=== PATIENT | male | born 1950 | race Caucasian/White ===

== ENCOUNTER 2022-07-13 11:05 | Emergency (ER) | payer MEDICARE, OTHER, SELFPAY ==
[2022-07-13] VITALS (13 sets, daily range): BP systolic 139–172; BP diastolic 80–101; PULSE 74–95; RESP 16–20; TEMP 36; O2SAT 85–96
--- NOTE | 2022-07-13 11:22 | ECG_ITS ---
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 Measurements Intervals [place] Rate: 86 P: 69 TN: 158 QRS: 9 QRSD: 97 T: 64 QT: 352 QTc: 421 Interpretive Statements SINUS RHYTHM Compared to ECG 06/27/2019 17:48:38 Sinus tachycardia no longer present Short TN interval no longer present Electronically Signed On 07-13-2022 19:01:17 SCRAPPER by Wally Vega M.D. [id number] f
--- NOTE | 2022-07-13 11:22 | XR_ITS ---
WS: [id number] Portable AP upright chest, 07/13/2022 Clinical Data: dyspnea/cough Comparison: Portable chest, 06/27/2019 Findings: There is a patchy peripheral opacity involving the left upper lobe and left lower lobe. Thi s opacity is most consistent with pneumonia but has actually changed little from 06/27/2019. No nodul es, masses or effusions are seen. The heart is normal. The pulmonary vascularity is not increased. No pneumothorax is seen. XR/XR chest 1V portable [id number] Impression: 1. Patchy peripheral opacity involving the left upper lobe and left lower lobe which may be chronic. 2. Right lung clear.
[2022-07-13 11:50] LABS: Basophils % 0.1 %; Eosinophils % 0.2 %; Hematocrit 39.1 % (42.0-52.0); Hemoglobin 13.1 g/dL (11.7-16.6); Lymphocytes # 1.1 10^3/uL (0.8-4.8); Lymphocytes % 7.6 %; Mean Corpuscular HGB Conc 33.5 g/dL (30.0-36.0); Mean Corpuscular Hemoglobin 30.4 pg (28.0-34.0); Mean Corpuscular Volume 90.7 fl (80-94); Monocytes # 0.7 10^3/uL (0.2-0.9); Monocytes % 5.1 %; Neutrophils # 11.59 10^3/uL (1.8-7.7); Neutrophils % 83.9 %; Nucleated Red Blood Cells % 0 %; Platelet Count 282 10^3/cmm (130-400); Red Blood Count 4.31 10^6/uL (4.1-5.3); Red Cell Distribution Width 12.2 % (12.1-15.1); White Blood Count 13.8 10^3/uL (4.0-10.0)
--- NOTE | 2022-07-13 11:55 | ED_ITS ---
HPI - SOB/Dyspnea General: Chief Complaint: Shortness of Breath/Dyspnea Stated Complaint: SOB, congestion Time Seen by Provider: 07/13/22 11:21 Source: patient Mode of arrival: ambulatory History of Present Illness: HPI Narrative: 72-year-old male presents emergency room with 1 week history of shortness of breath progressively worsening increasing cough. He was given a course of antibiotics and steroids as an outpatient despite that he continues to have productive cough and shortness of breath on arrival here he is afebrile but is hypoxic with 85% O2 sat on room air. He denies any chest or abdominal pain no dysuria urgency or frequency no vomiting or diarrhea if anything he is actually been little bit constipated recently. He is a former smoker quit several decades ago is not on any chronic inhaled medications. MD elicited complaint: shortness of breath and cough Onset (ago): day(s) Timing: constant Severity: mild Exacerbating factors: exertion and coughing Relieving factors: nothing Associated symptoms: Deny abdominal pain, chest congestion, chest pain, cough, diaphoresis, dizziness, extremity pain, fever(s), hemoptysis, lightheadedness, myalgias, nausea, orthopnea, palpitations, paresthesias, polydipsia, polyuria, rash, sense of impending doom, syncope or vomiting Treatment prior to arrival: none Review of Systems Const: Denies: fever(s) or diaphoresis Card: Denies: chest pain, palpitations, lightheadedness, syncope or orthopnea Resp: Denies: hemoptysis or chest congestion GI: Denies: abdominal pain, nausea or vomiting Musc: Denies: extremity pain Neuro: Denies: dizziness Endo: Denies: polyuria or polydipsia Physical Exam Const: GENERAL APPEARANCE: cooperative and comfortable TERESA ENTATION/CONSCIOUSNESS: Yes awake, Yes oriented to person, Yes oriented to place and Yes oriented to time HENMT: COMMON NORMALS: normocephalic, atraumatic and hearing grossly normal bilaterally HEAD & SCALP: normocephalic and atraumatic Resp: AUSCULTATION: rhonchi and wheezes Cardio: COMMON NORMALS: regular rate, regular rhythm and No murmurs present (Cardio) RATE: regular rate RHYTHM: regular rhythm GI: COMMON NORMALS: Soft to palpation and No hepatosplenomegaly present AUSCULTATION: Yes normoactive bowel sounds PALPATION: Yes Soft to palpation, No Tenderness to palpation present (GI), No Guarding due to palpation present (GI) and Yes No hepatosplenomegaly present : COMMON NORMALS: Yes no CVA tenderness BLADDER/KIDNEY EXAM: Yes no CVA tenderness Back/Pelvis: COMMON NORMALS: no CVA tenderness Extremity: COMMON NORMALS: normal to inspection, capillary refill normal, no clubbing, cyanosis or edema, no calf tenderness and no pedal edema Neuro: SENSORIUM/ORIENTATION: Yes oriented to person, Yes oriented to place and Yes oriented to time Skin: COMMON NORMALS: no rashes or lesions noted GENERAL SKIN EXAM: no rashes or lesions noted Course Vital Signs: Vital signs: Vital Signs Temperature 96.8 F L 07/13/22 11:10 Pulse Rate 79 07/13/22 15:36 Respiratory Rate 18 07/13/22 15:36 Blood Pressure 156/98 07/13/22 15:36 Pulse Oximetry 94 07/13/22 15:36 Oxygen Delivery Me thod 07/13/22 13:45 Oxygen Flow Rate 2 07/13/22 13:46 MDM - SOB/Dyspnea Medical Decision Making Patient tolerating well but she does require oxygen home oxygen evaluation shows he needs 2 L. He has some chronic changes is not chest x-ray that are actually slightly improved. Given his current symptoms we will put on prednisone taper mostly Radha put him on Levaquin. We will start him on oxygen use nebulizers every 4 hours recheck within 1 week with his primary care doctor return to the ER if has any worsening symptoms. Medical Records I reviewed the patient's medical records. Lab Data I reviewed the patient's lab results. 07/13/22 11:43 07/13/22 11:43 Labs/Radiology: Radiology Impressions Chest X-Ray 07/13/22 11:22 Impression: 1. Patchy peripheral opacity involving the left upper lobe and left lower lobe which may be chronic. 2. Right lung clear. Laboratory Results WBC 13.8 10^3/uL (4.0-10.0) H 07/13/22 11:43 RBC 4.31 10^6/uL (4.1-5.3) 07/13/22 11:43 Hgb 13.1 g/dL (11.7-16.6) 07/13/22 11:43 Hct 39.1 % (42.0-52.0) L 07/13/22 11:43 MCV 90.7 fl (80-94) 07/13/22 11:43 MCH 30.4 pg (28.0-34.0) 07/13/22 11:43 MCHC 33.5 g/dL (30.0-36.0) 07/13/22 11:43 RDW 12.2 % (12.1-15.1) 07/13/22 11:43 Plt Count 282 10^3/cmm (130-400) 07/13/22 11:43 MPV 10.0 fL (7.4-10.4) 07/13/22 11:43 Neut % (Auto) 83.9 % 07/13/22 11:43 Lymph % (Auto) 7.6 % 07/13/22 11:43 Wood % (Auto) 5.1 % 07/13/22 11:43 Eos % (Auto) 0.2 % 07/13/22 11:43 Baso % (Auto) 0.1 % 07/13/22 11:43 Neut # (Auto) 11.59 10^3/uL (1.8-7.7) H 07/13/22 11:43 Lymph # (Auto) 1.1 10^3/uL (0.8-4.8) 07/13/22 11:43 Wood # (Auto) 0.7 10^3/uL (0.2-0.9) 07/13/22 11:43 Eos # (Auto) 0.0 10^3/uL (0.0-0.8) 07/13/22 11:43 Baso # (Auto) 0.0 10^3/uL (0.0-0.1) 07/13/22 11:43 Nucleated RBC % (auto) 0 % 07/13/22 11:43 Nucleated RBCs # 0.0 /100WBC 07/13/22 11:43 Sodium 137 mmol/L (136-145) 07/13/22 11:43 Potassium 4.3 mmol/L (3.5-5.1) 07/13/22 11:43 Chloride 105 mmol/L (98-107) 07/13/22 11:43 Carbon Dioxide 21 mmol/L (22-29) L 07/13/22 11:43 Anion Gap 15.3 (5-19) 07/13/22 11:43 BUN 40 mg/dL (8-23) H 07/13/22 11:43 Creatinine 0.9 mg/dL (0.7-1.2) 07/13/22 11:43 GFR Calculation Not Reportable 07/13/22 11:43 Glucose 250 mg/dL (65-115) H 07/13/22 11:43 Calculated Osmolality 302 mOsm/kg (285-295) H 07/13/22 11:43 Calcium 9.5 mg/dL (8.5-10.5) 07/13/22 11:43 Total Bilirubin 0.6 mg/dL (0.15-1.2) 07/13/22 11:43 AST 29 U/L (0-40) 07/13/22 11:43 ALT 26 U/L (0-41) 07/13/22 11:43 Alkaline Phosphatase 159 U/L (40-130) H 07/13/22 11:43 NT-Pro-B Natriuret Pep 353 pg/mL (0-125) H 07/13/22 11:43 Total Protein 7.5 g/dL (6.6-8.7) 07/13/22 11:43 Albumin 2.9 g/dL (3.5-5.2) L 07/13/22 11:43 Globulin 4.6 g/dL (1.3-4.6) 07/13/22 11:43 Urine Color Dark yellow (Yellow) 07/13/22 13:04 Urine Appearance Hazy (CLEAR) A 07/13/22 13:04 Urine pH 5 (5-7) 07/13/22 13:04 Ur Specific [place] 1.025 (1.005-1.030) 07/13/22 13:04 Urine Protein Trace (Negative) 07/13/22 13:04 Urine Glucose (UA) 2+ (Normal) H 07/13/22 13:04 Urine Ketones Negative (Negative) 07/13/22 13:04 Urine Blood Neg (Negative) 07/13/22 13:04 Urine Nitrate Negative (Negative) 07/13/22 13:04 Urine Bilirubin Neg (Negative) 07/13/22 13:04 Urine Urobilinogen 1 mg/dL (Negative) H 07/13/22 13:04 Ur Leukocyte Esterase Negative (Negative) 07/13/22 13:04 Urine RBC None /hpf (0-2) 07/13/22 13:04 Urine WBC 0-4 /hpf (0-5) H 07/13/22 13:04 Ur Squamous Epith Cells 5-10 /hpf (0-5) H 07/13/22 13:04 Amorphous Sediment 1+ /hpf 07/13/22 13:04 Urine Bacteria 4+ /hpf (NONE) H 07/13/22 13:04 Hyaline Casts 0-4 /lpf H 07/13/22 13:04 Urine Mucus 1+ /hpf 07/13/22 13:04 Coronavirus 229E (PCR) Not detected (NOT DETECT) 07/13/22 12:27 Influenza Type A Ag negative (Negative) 07/13/22 12:27 Influenza Type B Ag negative (Negative) 07/13/22 12:27 SARS-CoV-2 (PCR) Not detected (NOT DETECT) 07/13/22 12:27 Discharge Plan Discharge Patient Disposition: Home Clinical Impression: Acute exacerbation of chronic obstructive airways disease Condition: Stable Prescriptions: New prednisone 20 mg tablet 20 mg PO TID Qty: 15 0RF Rx Instructions: 1 p.o. 3 times daily x3 days, 1 p.o. twice daily x2 days, 1 p.o. daily x2 days levofloxacin 750 mg tablet 750 mg PO DAILY 7 Days Qty: 7 0RF ipratropium-albuterol 0.5 mg-3 mg(2.5 mg base)/3 mL solution for nebulization 3 ml inhalation Q4H PRN (Reason: shortness of breath or wheezing) Qty: 180 0RF Discontinued prednisone 20 mg tablet 40 mg PO DAILY No Action metformin 500 mg tablet 500 mg PO DAILY lisinopril 20 mg tablet 20 mg PO DAILY albuterol sulfate 90 mcg/actuation HFA aerosol inhaler 2 puff INHALATION Q6H PRN (Reason: Shortness Of Breath) doxycycline hyclate 100 mg tablet 100 mg PO BID Discharge Orders: Discharge ED (Routine); Ordered 07/13/22 Ordered By: Kirit Atkins Other Ambulatory Orders: DME: Oxygen (Order) Location: None Selected Ordered By: Kirit Atkins Discharge Diet: Usual diet Discharge Activity: Increase activity as tolerated Patient Instructions: Opioid Safety, Pain Management Activity Restrictions/Additional Instructions: You were seen today for shortness of breath. Your chest x-ray shows chronic changes have been present for some time. Your white count was slightly elevated uric oxygenation improved with 2 L by nasal cannula on the oxygen saturation test. You will be discharged home with Levaquin 750 mg daily prednisone taper to start tomorrow and albuterol ipratropium bromide nebulizers every 4 hours while awake. Follow-up with your primary care doctor within the next week. Coding Level of Care Code ED [employer] for Michael Baca
[2022-07-13 12:23] LABS: Alanine Aminotransferase 26 U/L (0-41); Albumin Level 2.9 g/dL (3.5-5.2); Alkaline Phosphatase 159 U/L (40-130); Aspartate Amino Transferase 29 U/L (0-40); Blood Urea Nitrogen 40 mg/dL (8-23); Calcium 9.5 mg/dL (8.5-10.5); Carbon Dioxide 21 mmol/L (22-29); Chloride 105 mmol/L (98-107); Globulin 4.6 g/dL (1.3-4.6); Glucose 250 mg/dL (65-115); NT Pro B Type Natriuretic Pept 353 pg/mL (0-125); Osmolality Calculated 302 mOsm/kg (285-295); Sodium 137 mmol/L (136-145); Total Bilirubin 0.6 mg/dL (0.15-1.2); Total Protein 7.5 g/dL (6.6-8.7)
[2022-07-13 12:28] LABS: Anion Gap 15.3 (5-19); Potassium 4.3 mmol/L (3.5-5.1)
[2022-07-13 12:52] LABS: Influenza A by IFA negative (Negative); Influenza B by IFA negative (Negative)
[2022-07-13 13:30] LABS: Blood Urine Neg (Negative); Glucose Urine UA 2+ (Normal); Ketones Urine Negative (Negative); Protein Urine Trace (Negative); Specific Gravity, Urine 1.025 (1.005-1.030); Urine Appearance Hazy (CLEAR); Urine Color Dark Yellow (Yellow); pH Urine 5 (5-7)
[2022-07-13 13:31] LABS: Add Urine Microscopic? YES; Bilirubin Urine Neg (Negative); Leukocyte Esterase Urine Negative (Negative); Nitrate Urine Negative (Negative); Urobilinogen Urine 1 mg/dL (Negative)
[2022-07-13 13:39] LABS: Amorphous Sediment Urine 1+ /hpf; Bacteria Urine 4+ /hpf; Mucus Urine 1+ /hpf; WBC Urine 0-4 /hpf (0-5)
[2022-07-13 13:40] LABS: Add Urine Culture? Yes; Hyaline Casts Urine 0-4 /lpf
[2022-07-13] MEDS: ipratropium-albuterol 3 mL Neb INHALATION (13:42)
[2022-07-13] MEDS: dexamethasone 10 mg/mL INJ IM (13:48)
[2022-07-13 14:20] LABS: Adenovirus Not Detected (NOT DETECT); Chlamydia Pneumoniae Not Detected (NOT DETECT); Coronavirus 229E,HKU1,NL63,OC4 Not Detected (NOT DETECT); Human Metapneumovirus Not Detected (NOT DETECT); Human Rhinovirus/Enterovirus Not Detected (NOT DETECT); Influenza A Not Detected (NOT DETECT); Influenza A H1 Not Detected (NOT DETECT); Influenza A H1-2009 Not Detected (NOT DETECT); Influenza A H3 Not Detected (NOT DETECT); Influenza B Not Detected (NOT DETECT); Mycoplasma Pneumoniae Not Detected (NOT DETECT); Parainfluenza Virus Type 1 Not Detected (NOT DETECT); Parainfluenza Virus Type 2 Not Detected (NOT DETECT); Parainfluenza Virus Type 3 Not Detected (NOT DETECT); Parainfluenza Virus Type 4 Not Detected (NOT DETECT); Respiratory Syncytial Virus A Not Detected (NOT DETECT); Respiratory Syncytial Virus B Not Detected (NOT DETECT); SARS-COV-2 Not Detected (NOT DETECT)
== END 2022-07-13 15:39 | disposition home or self-care (01) ==
PROVIDERS: Emergency Provider Family Medicine
DX: J44.1 Chronic obstructive pulmonary disease with (acute) exacerbation (principal); Z20.822 Contact with and (suspected) exposure to COVID-19
CPT/HCPCS: 71045; 80053; 81001; 83880; 85025; 87040; 87070; 87077; 87086; 87186; 87205; 87635; 87804; 93005; 94640; 96372; 99285; J1100